=== PATIENT | female | born 1950 | race Caucasian/White ===

== ENCOUNTER 2019-10-25 19:04 | Emergency (ER) | payer MEDICARE, OTHER ==
[~2019-10-25] VITALS: Ht 160 cm; Wt 74.8 kg
[~2019-10-25 19:04] MED LIST: AZELASTINE205.5 MCG/ INH; CELEBREX200 MG ORAL; CIPROFLOXACIN750 MG ORAL; CLOTRIMAZOLE15 GM TOPIC; CRESTOR10 M2 ORAL; GABAPENTIN100 MG ORAL; IBUPROFEN600 MG ORAL; NASONEX17 GM NASAL; NEXIUM40 MG ORAL; PAROXETINE HC12.5 MG ORAL; PLAQUENIL200 MG ORAL; ROZEREM8 MG PO; SALAGEN5 MG PO; ZETIA10 MG ORAL
[2019-10-25 19:30] VITALS: BP 152/73
--- NOTE | 2019-10-25 19:30 | NUR ---
ED Nurse Note: Pt ambulated to ED from home c/o pain, redness, swelling since yesterday, pt has a bug bite on her outer R ankle, denies fever, pt A&Ox4, VSS
--- NOTE | 2019-10-25 19:53 | Emergency Room Report ---
History of Present Illness General Chief Complaint: General Complaint Present Illness HPI 69 YO Female presents to the ED c/o Spider bite on the lateral right calf yesterday. progressive swelling and erythema around a punctate center. No bleeding, no necrosis of the skin. Denies blisters. Pt. reports hx of Lupus. Pt. denies fevers or chills. Reports 4/10 pain with palpation. Pt. states she is UTD with vaccinations. No other aggravating or relieving factors at this time. No lesions elsewhere on the body no itching, no swelling of the lips or tongue. No shortness of breath or difficulty breathing. Allergies: Coded Allergies: ACETAMINOPHEN (Verified Allergy, Unknown, 08/12/16) HYDROCODONE (Verified Allergy, Unknown, 08/12/16) Patient History Past Medical History: see triage record Past Surgical History: none Pertinent Family History: none Now: No Immunizations: UTD Reviewed Nursing Documentation: PMH: Agreed; PSxH: Agreed Nursing Documentation-PMH Hx Hypertension: Yes Hx Asthma: Yes Hx Cancer: No Hx Gastrointestinal Problems: Yes - GASTRITIS Hx Neurological Problems: No Review of Systems All Other Systems: negative except mentioned in HPI Physical Exam Vital Signs Date Time Temp Pulse Resp B/P (MAP) Pulse Ox O2 Delivery O2 Flow Rate FiO2 10/25/19 19:14 98.4 69 18 152/73 (99) 97 Room Air Sp02 EP Interpretation: reviewed, normal General Appearance: no apparent distress, alert, GCS 15, non-toxic Head: normocephalic, atraumatic Eyes: bilateral eye normal inspection, bilateral eye PERRL ENT: hearing grossly normal, normal voice Neck: full range of motion, other - no stridor Respiratory: chest non-tender, lungs clear, normal breath sounds, no respiratory distress, no wheezing, speaking full sentences Cardiovascular #1: regular rate, rhythm, normal capillary refill Rectal: deferred Genitourinary: normal inspection Musculoskeletal: back normal, normal range of motion, gait/station normal, non- tender Neurologic: alert, motor strength/tone normal, oriented x3, sensory intact, responsive, speech normal Psychiatric: judgement/insight normal Skin: other - insect bite with localized surrounding 3cm in diameter cellulitis ( swelling, erythema and warmth) of the lateral aspect of the right calf. NO fluctuance. Lymphatic: no adenopathy Medical Decision Making PA Attestation Dr. Paz Is my supervising Physician whom patient management has been discussed with. Diagnostic Impression: Primary Impression: Insect bite of leg, infected Qualified Codes: S80.861A - Insect bite (nonvenomous), right lower leg, initial encounter; L08.9 - Local infection of the skin and subcutaneous tissue, unspecified; W57.XXXA - Bitten or stung by nonvenomous insect and other nonvenomous arthropods, initial encounter ER Course 69 YO Female presents to the ED c/o Spider bite on the lateral right calf yesterday. progressive swelling and erythema around a punctate center. No bleeding, no necrosis of the skin. Denies blisters. Pt. reports hx of Lupus. Pt. denies fevers or chills. Reports 4/10 pain with palpation. Pt. states she is UTD with vaccinations. No other aggravating or relieving factors at this time. No lesions elsewhere on the body no itching, no swelling of the lips or tongue. No shortness of breath or difficulty breathing. Ddx considered but are not limited to cellulitis, Abscess, insect bite, drug/ medication SE, fracture, d/L, gout, DVT just to name a few. Vital signs: are WNL, pt. is afebrile H&PE are most consistent with insect bite with localized surrounding 3cm in diameter cellulitis of the lateral aspect of the right calf. ORDERS: none required at this time, the diagnosis is clinical ED INTERVENTIONS: None required at this time. DISCHARGE: At this time pt. is stable for d/c to home. Will provide printed patient care instructions, and any necessary prescriptions. Care plan and follow up instructions have been discussed with the patient prior to discharge. Last Vital Signs Date Time Temp Pulse Resp B/P (MAP) Pulse Ox O2 Delivery O2 Flow Rate FiO2 10/25/19 19:14 98.4 69 18 152/73 (99) 97 Room Air Disposition: HOME, SELF-CARE Condition: Stable Scripts Ibuprofen* (MOTRIN*) 600 Mg Tablet 600 MG ORAL THREE TIMES A DAY, #9 TAB 0 Refills Prov: Sada Reno 10/25/19 Cephalexin* (KEFLEX*) 500 Mg Capsule 500 MG ORAL EVERY 12 HOURS for 7 Days, #14 CAP 0 Refills Prov: Sada Reno 10/25/19 Mupirocin* (MUPIROCIN*) 22 Gm Oint...g. 1 APPLIC TOPIC THREE TIMES A DAY, #22 GM Prov: Sada Reno 10/25/19 Patient Instructions: Cellulitis, [id number], Insect Bite, [id number] Additional Instructions: Take medications as directed. Follow up with a Primary Care Provider in 3-5 days, even if your symptoms have resolved. Return sooner to ED if new symptoms occur, or current symptoms become worse. - Please note that this Emergency Department Report was dictated using [employer] programmer technology software, occasionally this can lead to erroneous entry secondary to interpretation by the dictation equipment. Sada Reno Oct 25, 2019 19:53
[2019-10-25] MEDS ORDERED: IBUPROFEN600 MG ORAL (19:55)
[2019-10-25] MEDS ORDERED: MUPIROCIN22 GM TOPIC (19:55)
[2019-10-25] MEDS ORDERED: CEPHALEXIN500 MG ORAL (19:55)
[2019-10-25 20:05] VITALS: BP 152/73
--- NOTE | 2019-10-25 20:05 | NUR ---
ER DISCHARGE NOTE: Patient is cleared to be discharged per ERMD, pt is aox4, on room air, with stable vital signs. pt was given dc and prescription instructions, pt was able to verbalize understanding, pt id band removed. pt is able to ambulate with steady gait. pt took all belongings.
== END 2019-10-25 20:05 | disposition home or self-care (01) ==
LOC: EMR 19:30
DX: S80.861A Insect bite (nonvenomous), right lower leg, initial encounter (principal); L08.9 Local infection of the skin and subcutaneous tissue, unspecified; W57.XXXA Bitten or stung by nonvenomous insect and other nonvenomous arthropods, initial encounter; I10 Essential (primary) hypertension; Z88.6 Allergy status to analgesic agent
CPT/HCPCS: 99282